=== PATIENT | male | born 1980 | race African-American/Black ===

== ENCOUNTER → 2018-10-31 13:55 | Outpatient (CLI) | payer OTHER, SELFPAY ==
[2018-10-31 13:35] VITALS: BMI 26.2
--- NOTE | 2018-10-31 13:58 | RAD_ITS ---
STUDY: X-RAY - UNILATERAL RIBS ( LEFT ) REASON FOR EXAM: Male, 38 years old. Lateral left rib pain following injury. TECHNIQUE: 4 view(s) of the ribs. COMPARISON: None. FINDINGS: Normal visualized ribs without a demonstrated fracture. The visualized lung is clear and expanded. RAD/Ribs Unil 2V No CXR IMPRESSION: Normal x-ray examination of the ribs. Electronically Signed: Jorge Alberto Christopher, at 14:38 EDT , Service support ,
== END ==
PROVIDERS: Referring Provider Physician Assistant Surgical; Visit Provider Physician Assistant Surgical
DX: S20.212A Contusion of left front wall of thorax, initial encounter (principal)
CPT/HCPCS: 71100

== ENCOUNTER 2020-11-25 07:32 | Day surgery (SDC) | payer OTHER, SELFPAY ==
[2020-09-24 10:06] VITALS: BMI 26.9
--- NOTE | 2020-11-24 22:54 | PCM.HP.BLA ---
History and Physical Date of Admission: 11/25/20 HISTORY OF PRESENT ILLNESS 40 year old man presents with a painful cartilaginous mass right ear involving the posterior nadine of the triangular fossa that has increased in size over the last several months. He states when he was younger he wrestled a lot and developed this cauliflower deformity right ear. He states they also drained a hematoma when he was younger. He denies any fever. He denies any recent infection. He denies any recent trauma. He presents at this time for further evaluation and treatment. PAST MEDICAL HISTORY Contusion of right ear, sequela Cauliflower ear, right ear Carpal tunnel syndrome Frequent headaches PAST SURGICAL HISTORY ear surgery surgery on wrist tendon repair ALLERGIES No Known Allergies MEDICATIONS fluticasone propionate actuation nasal spray loratadine FAMILY HISTORY Brother - Anxiety, Diabetes Sister - Asthma Father - CVA (cerebral vascular accident) Uncle - CVA (cerebral vascular accident) SOCIAL HISTORY Smoking Status: Never smoker alcohol intake: current alcohol intake frequency: a few times a week Alcohol type: wine REVIEW OF SYSTEMS General - Denies fever, fatigue, and weight loss. Eyes - Denies cataracts and glaucoma. ENT - Denies nasal congestion and sore throat. History of seasonal allergies. Endocrine - Denies excessive thirst and urination. Skin - Denies skin cancer. Has painful cauliflower deformity right ear. Musculoskeletal - Denies joint pain, joint stiffness, weakness of muscles and joints, back pain, and arthritis. History of ruptured Achilles tendon and wrist surgery. Neuro - History of headaches and migraines. Cardiovascular - Denies chest pain, fatigue, and shortness of breath with exertion. Psych - Denies anxiety and depression. Respiratory - Denies chronic cough and shortness of breath. Gastrointestinal - Denies nausea, vomiting, diarrhea, and constipation. Hematologic - Denies abnormal bruising and bleeding. Genitourinary - Denies hematuria and urinary frequency. PHYSICAL EXAMINATION General - Alert and Oriented HEENT - PERRL. EOMI. Throat is clear. On the posterior nadine of the triangular fossa is a cartilaginous mass cauliflower deformity. Measures 1 cm. No evidence of infection. Slight adherence to the overlying skin. Some tenderness to palpation. No other suspicious lesions noted. Neck - Supple and nontender. No cervical adenopathy. No suspicious lesions noted. Lungs - Clear to auscultation. Heart - Regular rate and rhythm. Abdomen - Soft and nondistended. Extremities - FROM. No axillary adenopathy. Radial pulses are palpable. No suspicious lesions noted. Neuro - CN II-XII grossly intact. Psych - Normal mood and affect. ASSESSMENT 1. 1 cm painful cauliflower deformity posterior nadine of the triangular fossa right ear. 2. Late effect hematoma right ear. PLAN Recommend excision of this cauliflower deformity right ear. Tissue that is removed will be sent to Pathology for analysis to rule out carcinoma. Will also send tissue to Microbiology for culture. Depending on the degree of adherence of the mass to the overlying skin, additional skin may be excised to minimize recurrence. Reconstruction may need to be with a skin graft. Surgery will be done under local anesthesia and IV sedation on an outpatient basis. Patient was informed of the risks and complications of the procedure including alternatives to surgery. These were discussed with the patient personally. Patient voices understanding and wishes to proceed. Some of the risks and complications were included in a form from the [employer]. We discussed the current risks associated with COVID-19. While it is understood that there is a community spread of COVID-19, the risk of rishabh COVID-19 while at [facility] ([facility]) is very low; however, the risk cannot be completely mitigated because of the community spread of the disease. We discussed in detail the risk of exposure to and/or potential harm posed by the COVID-19 virus with having a surgery/procedure at this time versus the risk of delaying the surgery/procedure. It is not possible to know either the risk of delaying the surgery or procedure or chance of getting an infection with perfect accuracy, but a joint decision was made to proceed at this time with the scheduled surgery/procedure as indicated on the consent form. Patient was notified that we will need to comply with any screening or testing [facility] wishes to perform or that surgery may be delayed for any positive results. Discussed with the patient that I was tested for COVID-19 on 02/21/20 which was negative and on 03/06/20 which was negative and on 03/20/20 which was negative and on 04/03/20 which was negative and on 04/17/20 which was negative and on 05/08/20 which was negative and on 05/29/20 which was negative and on 07/03/20 which was negative and on 07/24/20 which was negative and on 08/12/20 which was negative. My testing regimen at this time is to be COVID-19 tested every 2 weeks or so. I received the COVID-19 vaccine (Moderna) on 08/20/20 and the second vaccine dose was received on 09/17/20. I was tested for COVID-19 on 10/20/20 which was negative and on 11/04/20 which was negative. Procedure Criteria Procedure Type: Elective COVID Risk Discussion: The surgeon/proceduralist and patient have discussed in detail the risk of exposure to and/or potential harm posed by the COVID-19 virus with having a surgery/procedure at this time versus the risk of delaying the surgery/procedure. It is not possible to know either the risk of delaying the surgery or procedure or chance of getting an infection with perfect accuracy, but a joint decision was made between the patient and the surgeon/proceduralist to proceed at this time with the scheduled surgery/procedure as indicated on the consent form.
[2020-11-25] VITALS (8 sets, daily range): BP systolic 108–124; BP diastolic 77–95; PULSE 54–69; RESP 16; TEMP 36.3–36.8; O2SAT 99–100; BMI 25.2
[2020-11-25] MEDS: Lactated Ringers 1,000 ML 100 ML IV ×2 (08:08→11:52)
--- NOTE | 2020-11-25 09:00 | LES_PTH ---
PATIENT: DANNY SINGH LOC[place] [facility] [place][id number] AGE/SX: 40/M ROOM: RE11/25/[address]: Dr. Arash Baldwin MD : 1980 BED: DIS: 11/25/2020 SPEC #: [id number] RECD: 11/25/20 12:42 STATUS: HANANE JADEN #: [id number] BOB: 11/25/20 09:[address]: Arash Baldwin DEPT: SURGICAL PATHOLOGY RECD BY: Raegan Juarez ENTERED: 11/25/20 13:07 SP TYPE: Lesion OTHR DR: Dr. Osvaldo Barba MD Tissues: Skin of external ear, NOS Procedures: Decalcification bone/plaque Surgery Specimen Level III HEADER OPERATION: Excision cartilage mass, ear PRE-OP DIAGNOSIS: 1 cm painful cauliflower deformity, posterior nadine of triangular fossa right ear; late effect hematoma right ear TISSUE SUBMITTED: 1 cm painful cauliflower deformity, posterior nadine of triangular fossa right ear MICROSCOPIC DIAGNOSIS Painful cauliflower deformity, posterior nadine of triangular fossa right ear, excision: Fragments of fibroconnective tissue, cartilaginous tissue and bone with reactive changes. See comment. ALVARO:dima 11/28/2020 COMMENT Clinical correlation and appropriate follow up are necessary. MICROSCOPIC DESCRIPTION Slides are reviewed. GROSS DESCRIPTION Received in fixative is one container labeled with the patient's name and designated 1 cm painful cauliflower deformity, posterior nadine of triangular fossa right ear. The specimen consists of multiple irregular fragments of lezama soft tissue mixed with fragments of bone that in aggregate measure 2 x 1.5 x 0.3 cm. The entire specimen is submitted in one cassette after decalcification. / ALVARO:dima 11/25/20 TC:5 CPT: 62578, 17181
[2020-11-25] MEDS: Lidocaine 1% /Epi 1:100 (20ml) 20 ML Vial (09:18)
[2020-11-25] MEDS: Mupirocin Ointment 22gm Tube 1 APPLIC (10:33)
--- NOTE | 2020-11-25 10:47 | PCM.OPRPT ---
Report of Operation Date of Procedure: 11/25/20 Pre-Operative Diagnosis: 1. 1 cm painful cauliflower deformity posterior nadine of the triangular fossa right ear. 2. Late effect hematoma right ear. Post-Operative Diagnosis: 1. 1 cm painful cauliflower deformity posterior nadine of the triangular fossa right ear with inferior extension involving the antehelical fold. 2. Late effect hematoma right ear. Surgery/Procedure Performed:: Excision and repair 1 cm painful cauliflower deformity posterior nadine of the triangular fossa right ear with inferior extension involving the antehelical fold. Description of Surgical Findings:: 40 year old man presents with a painful cartilaginous mass right ear involving the posterior nadine of the triangular fossa that has increased in size over the last several months. He states when he was younger he wrestled a lot and developed this cauliflower deformity right ear. He states they also drained a hematoma when he was younger. He denies any fever. He denies any recent infection. He denies any recent trauma. Patient was informed of the risks and complications of the procedure including alternatives to surgery. These were discussed with the patient personally. Patient voices understanding and wishes to proceed. Some of the risks and complications were included in a form from the [employer]. 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 Drains: None. Estimated Blood Loss (mL): 10 ml. Description of Procedure: Patient was taken to OR in supine position and was placed under general anesthesia. The right ear was prepped and draped in the usual fashion. SCD's were placed for DVT prophylaxis. Perioperative antibiotics were given intravenously. Using xylocaine with epinephrine, the right ear was infiltrated with a periauricular block. After waiting 5 minutes for the anesthetic to take effect, I made an incision at the junction of the helical rim and the scapha. Dissection was carried down to the cartilage. The abnormal cartilaginous mass was freed up off the skin flap. The cartilage was quite hard and calcified. I couldn't excise it completely with a scalpel. I ended up using a rongeurs. The mass extended from the posterior nadine of the triangular fossa inferiorly down the antehelical fold. Extensive excision was done with the rongeurs until the remaining cartilage was soft. The wound was irrigated with saline. Hemostasis was obtained with gentle pressure and electrocautery. The cartilaginous mass was sent to Pathology for analysis to rule out carcinoma. Some of the cartilaginous tissue was sent to Microbiology for culture. A positive culture will necessitate antibiotic therapy. The overlying skin was of good quality and so no skin graft was needed. The skin flap was then placed back on the wound and secured to the helical rim with 5-0 Monocryl interrupted sutures and vertical mattress interrupted sutures. Good ear contour was noted. A dry gauze dressing was applied. Patient tolerated the procedure well and was sent to PACU in satisfactory condition. Patient will be sent home on antibiotics and pain medication. He will keep his head elevated during the initial postoperative period. He will be on a lifting restriction as well. Patient will followup in a week for a wound check and for discussion of the pathology report and for discussion of the Microbiology report. Grafts/Implants Used: None. - Complications None. - Admit VTE Documentation VTE Present on Admission: No VTE Mechan Device Prophylaxis: SCD's VTE Pharm Prophylaxis ordered?: No Surgery Charges CPT - 65903 ICD-10 - M95.11, S00.431S
--- NOTE | 2020-11-25 11:08 | DCINST_ITS ---
You will use the following diet at home:: No restrictions Discharge Activity: May not drive while taking narcotic pain medications., May Shower - in 2 days., - - keep head elevated. no heavy lifting. Return to work on:: 11/27/20 - tentative May shower in (days): 2 May resume sexual activity in: 10-14 days Ice area for (Minutes): 5 - as needed for swelling. Weight Bearing Status: Weight bearing as tolerated Lifting Restrictions: 20 lbs. Keep extremity elevated above heart level: - - elevate head Call your doctor if your incision/area has: Continuous Slow Oozing, Sudden Increased Bleeding, Increased Pain/ Swelling, Increased Redness, Foul Smelling Discharge, Swelling at the incision site Call your doctor if you observe: Fever of 101 or Higher, Coldness, Increased Pain, Shortness of breath, Chest pain, Calf discomfort, Uncontrolled pain Suture Line Care: - - apply antibiotic ointment daily to suture line. Remove Dressing in (days):: 2 Cleanse incision/area with: - - may get incision wet in the shower in two days. Additional Dressing/Incision Instructions:: Instructed family on bimanual compression every couple hours while awake to minimize hematoma formation. Allergies/Adverse Reactions: Allergies No Known Allergies Allergy (Unverified 09/24/20 10:01) Medications to take at Discharge fluticasone propionate 50 mcg/actuation nasal spray,suspension 1 spray INTRANASAL DAILY 10/31/18 loratadine 10 mg tablet 10 mg PO PRN PRN 10/31/18 Clindamycin HCl [Cleocin] 300 mg PO TID #15 capsule 11/25/20 Oxycodone HCl/Acetaminophen [Percocet 5/325] 1 tablet PO 4X/DAY PRN PRN 7 Days #28 tablet 11/25/20 The following prescriptions were given: Clindamycin HCl [Cleocin] 300 mg PO TID #15 capsule Transmission Status: Pending to [facility]/pharmacy #[id number] Oxycodone HCl/Acetaminophen [Percocet 5/325] 1 tablet PO 4X/DAY PRN PRN 7 Days #28 tablet PRN Reason: Pain Score 6-10 Transmission Status: Received by [facility]/pharmacy #[id number] Primary Care Physician: Cornleio Barba MD [Primary Care Provider] - Test Results: Test results from this visit will be discussed in further detail at your follow- up appointment, if applicable. Please Follow Up With: Arash Baldwin MD When: one week. call [phone] for appt. Proposed Discharge Date: 11/25/20
== END 2020-11-25 12:37 | disposition home or self-care (01) ==
LOC: SDC 07:33 → AC 07:33
PROVIDERS: PCP Family Medicine; Referring Provider Surgery; Visit Provider Surgery
PROC: (CPT 69110; principal; 2020-11-25 08:45)
DX: M95.11 Cauliflower ear, right ear (principal); S00.4 Superficial injury of ear; X58.XXXS Exposure to other specified factors, sequela; Z20.822 Contact with and (suspected) exposure to COVID-19
CPT/HCPCS: 69110; 87070; 87075; 87102; 87176; 87205; 87206; 87426; 88304; 88305; 88311; C9803; J7120; J2405

== ENCOUNTER → 2022-03-11 | Outpatient (CLI) | payer OTHER, SELFPAY ==
[2022-03-11 17:52] LABS: Hematocrit 46.1 % (40-54); Hemoglobin 14.3 g/dL (13.0-16.5); Mean Corpuscular Hgb 27.3 pg (27.0-32.0); Mean Corpuscular Volume 88.1 fL (80-94); Mean Platelet Vol. 10.9 fl (6.2-12.0); Platelet Count 218 K/mm3 (150-450); RBC Distribution Width CV 12.9 % (11.6-14.6); RBC Distribution Width SD 41.8 fl (35.1-43.9); Red Blood Count 5.23 M/mm3 (4.6-6.2); White Blood Count 4.6 K/mm3 (4.4-11.0)
[2022-03-11 18:13] LABS: Vitamin B12 377 pg/mL (211-911); Vitamin D,25 Hydroxy 47.9 ng/mL
[2022-03-11 18:16] LABS: AST(SGOT) 20 U/L (15-37); Alanine Aminotransfer ALT/SGPT 29 U/L (16-61); Albumin, Serum 3.7 g/dL (3.2-5.0); Alkaline Phosphatase 62 U/L (45-117); Anion Gap 7 (5-15); BUN 18 mg/dL (7-18); Calcium,Total 8.7 mg/dL (8.5-10.1); Chloride 109 mmol/L (98-107); Cholesterol 170 mg/dL (200); Creatinine, Serum 1.29 mg/dL (0.70-1.30); EST Glomerular Filtration Rate 65 mL/min (>60); Est Glom Filt Rate - Afr Amer 79 mL/min (>60); Globulin 3.6 g/dL (2.2-4.2); Glucose 105 mg/dL (74-106); High Density Lipoprotein 40 mg/dL; Potassium 4.3 mmol/L (3.5-5.1); Protein, Total 7.3 g/dL (6.4-8.2); Sodium Level 142 mmol/L (136-145); Thyroid Stim Hormone (TSH) 0.85 uIU/mL (0.358-3.74); Triglycerides 106 mg/dL; Very Low Density Lipoprotein 21 mg/dL (5-40)
== END | disposition home or self-care (01) ==
LOC: MFPLAB 16:07
PROVIDERS: PCP Family Medicine; Referring Provider Family Medicine; Visit Provider Family Medicine
DX: Z13.220 Encounter for screening for lipoid disorders (principal); R53.83 Other fatigue
CPT/HCPCS: 36415; 80053; 80061; 82306; 82607; 84403; 84443; 85027

== ENCOUNTER → 2024-04-25 | Outpatient (CLI) | payer OTHER, SELFPAY ==
[2024-04-25 11:31] LABS: Bacteria 0 SEEN /hpf (None Seen); Mucous, Urine 0 SEEN /hpf (<or=2+); Red Blood Cells-Urine 0 SEEN /hpf (0-5); Squamous Epithelial Cells - UA 0 SEEN /hpf (0-5); White Blood Cells 0 SEEN /hpf (0-5)
--- NOTE | 2024-04-25 11:35 | RAD_ITS ---
STUDY: X-RAY CHEST REASON FOR EXAM: Male, 43 years old. Cough. TECHNIQUE: Frontal and lateral views of the chest on 3 images. COMPARISON: Rib series dated October 31, 2018 FINDINGS: The lungs are clear and expanded. Granulomatous calcifications unchanged. There is no demonstrated pleural abnormality. Normal size heart. Normal mediastinum and brittaney. Normal visualized pulmonary arteries. Normal visualized aortic arch and descending thoracic aorta. Normal visualized thoracic spine. Normal visualized ribs, clavicles, and shoulders. No abnormality of the visualized soft tissue structures of the upper abdomen. RAD/Chest PA and Lateral IMPRESSION: Stable chest with no acute or active cardiopulmonary disease. Electronically Signed: Spike Hunt MD at 11:45 EDT ,
[2024-04-25 15:31] LABS: Color, Urine Yellow (Yellow); Glucose, Dipstick Normal (Normal); Ketone-Dipstick Negative (Negative); Leukocyte Esterase-Dipstick Negative /ul (Negative); Nitrite-Dipstick Negative (Negative); Occult Blood-Urine Negative /ul (Negative); Protein-Dipstick Negative (Negative); Urine Bilirubin Dipstick Negative (Negative); Urine Clarity Clear (Clear); Urine Urobilinogen Normal (Normal)
[2024-04-25 15:34] LABS: ALB/GLOB Ratio 0.9 RATIO (0.9-2.4); AST(SGOT) 17 U/L (15-37); Alanine Aminotransfer ALT/SGPT 33 U/L (16-61); Albumin, Serum 3.7 g/dL (3.2-5.0); Alkaline Phosphatase 57 U/L (45-117); Anion Gap 5 (5-15); BUN 10 mg/dL (7-18); BUN/Creat Ratio 7.8 RATIO (10-20); CRP < 2.90 mg/L (0.0-3.0); Calcium,Total 9.1 mg/dL (8.5-10.1); Chloride 105 mmol/L (98-107); Creatinine, Serum 1.29 mg/dL (0.70-1.30); EST Glomerular Filtration Rate 65 mL/min (>60); Est Glom Filt Rate - Afr Amer 78 mL/min (>60); Globulin 3.9 g/dL (2.2-4.2); Glucose 94 mg/dL (74-106); Potassium 4.2 mmol/L (3.5-5.1); Protein, Total 7.6 g/dL (6.4-8.2); Sodium Level 138 mmol/L (136-145)
[2024-04-25 15:47] LABS: Absolute Lymphocyte Count 1.81 X10^3/uL (0.83-4.51); Absolute Neutrophil Count 2.8 X10^3/uL (2.0-7.7); Basophil# 0.03 X10^3/uL; Basophil% 0.6 % (0-1); Eosinophils% 1.9 % (0-5); Hematocrit 47.6 % (40-54); Hemoglobin 15.1 g/dL (13.0-16.5); Lymphocyte # 1.81 X10^3/ul (0.83-4.51); Lymphocyte % 34.9 % (19-41); Mean Corp Hgb Conc 31.7 g/dL (32-36); Mean Corpuscular Hgb 27.2 pg (27.0-32.0); Mean Corpuscular Volume 85.6 fL (80-94); Mean Platelet Vol. 10.9 fl (6.2-12.0); Monocyte# 0.43 X10^3/uL; Monocyte% 8.3 % (0-10); NRBC Flagged by Analyzer 0 % (0-5); Neutrophil % 54.1 % (47-70); Platelet Count 211 K/mm3 (150-450); RBC Distribution Width SD 40.7 fl (35.1-43.9); Red Blood Count 5.56 M/mm3 (4.6-6.2); White Blood Count 5.2 K/mm3 (4.4-11.0)
[2024-04-25 15:54] LABS: Erythrocyte Sedimentation Rate 1 mm/hr (0-20)
== END | disposition home or self-care (01) ==
LOC: MTLAB 11:28
PROVIDERS: PCP Family Medicine; Referring Provider Family Medicine; Visit Provider Family Medicine
DX: R05.9 Cough, unspecified (principal); M54.6 Pain in thoracic spine
CPT/HCPCS: 36415; 71046; 80053; 81001; 85025; 85652; 86140

== ENCOUNTER → 2024-11-27 | Outpatient (CLI) | payer OTHER, SELFPAY ==
[2024-11-27 11:24] LABS: Anion Gap 12 (5-15); BUN 13 mg/dL (4-19); BUN/Creat Ratio 10.1 RATIO (10-20); Carbon Dioxide 23.1 mmol/L (21.0-32.0); Chloride 106 mmol/L (98-108); Cholesterol 189 mg/dL (<=200); Creatinine, Serum 1.25 mg/dL (0.70-1.20); EST Glomerular Filtration Rate 73 (>60); Glucose 99 mg/dL (70-99); High Density Lipoprotein 47 mg/dL; Low Density Lipoprotein Calc. 121 mg/dL; Sodium Level 141 mmol/L (133-145); Triglycerides 105 mg/dL; Very Low Density Lipoprotein 21 mg/dL (5-40); Vitamin B12 544 pg/mL (180-914)
[2024-11-28 06:08] LABS: V-Zoster IgG (Immunity) Reactive (Non Reactive)
== END | disposition home or self-care (01) ==
LOC: MTLAB 08:22
PROVIDERS: PCP Family Medicine; Referring Provider Family Medicine; Visit Provider Family Medicine
DX: Z13.1 Encounter for screening for diabetes mellitus (principal); Z13.220 Encounter for screening for lipoid disorders
CPT/HCPCS: 36415; 80048; 80061; 82607; 86787